=== PATIENT | male | born 1985 | race African-American/Black ===

== ENCOUNTER 2018-10-03 01:20 | Emergency (ER) | payer SELFPAY | END 2018-10-03 01:48 | disposition left against medical advice (07) | LOC: E/R 01:20 | DX: Z53.21 Procedure and treatment not carried out due to patient leaving prior to being seen by health care provider (principal) ==

== ENCOUNTER 2018-10-03 12:12 | Inpatient (IN) | payer MEDICAID ==
[2018-10-03] MEDS: DIPHENHYDRAMINE 50 MG INJ IM (12:29)
[2018-10-03] MEDS: LORAZEPAM 2 MG INJ IM ×2 (12:29→18:42)
[2018-10-03] MEDS: OLANZAPINE 10 MG VIAL IM (12:47)
[2018-10-03 13:49] LABS: ADD MAN DIFF? NO
[2018-10-03 13:58] LABS: BASOPHILS % 0.1 % (0.0-2.0); EOSINOPHILS # 0.1 10^3/ul (0.0-0.5); EOSINOPHILS % 0.7 % (0.0-7.0); HEMOGLOBIN 12.6 g/dl (14.0-18.0); LYMPHOCYTES # 1.3 10^3/ul (0.8-2.9); LYMPHOCYTES % 19.1 % (15.0-51.0); MEAN CORPUSCULAR HGB CONC 31.5 g/dl (32.0-37.0); MEAN CORPUSCULAR VOLUME 85.8 fl (82.0-101.0); MEAN PLATELET VOLUME 10.3 fl (7.4-10.4); MONOCYTE # 1.1 10^3/ul (0.3-0.9); MONOCYTES % 15.1 % (0.0-11.0); NEUTROPHIL # 4.5 10^3/ul (1.6-7.5); NEUTROPHILS % 64.6 % (39.0-77.0); PLATELET COUNT 201 10^3/UL (140-415); RED BLOOD COUNT 4.66 10^6/ul (4.70-6.10); RED CELL DISTRIBUTION WIDTH 12.4 % (11.5-14.5)
[2018-10-03 14:17] LABS: ACETAMINOPHEN < 10.0 ug/ml (10.0-30.0); ALANINE AMINOTRANSFERASE 29 IU/L (13-69); ALBUMIN 3.8 g/dl (3.3-4.9); ALBUMIN/GLOBULIN RATIO 1.05; ALKALINE PHOSPHATASE 73 IU/L (42-121); ANION GAP 7 (5-13); ASPARTATE AMINO TRANSFERASE 63 IU/L (15-46); BILIRUBIN,INDIRECT 0.3 mg/dl (0-1.1); BILIRUBIN,TOTAL 0.3 mg/dl (0.2-1.3); BLOOD UREA NITROGEN 13 mg/dl (7-20); CALCIUM 8.9 mg/dl (8.4-10.2); CARBON DIOXIDE 28 mmol/L (21-31); CHLORIDE 103 mmol/L (97-110); CREATININE 1.18 mg/dl (0.61-1.24); ETHANOL < 10.0 mg/dl (0-0); Estimated GFR > 60 mL/min (>60); GLUCOSE 83 mg/dl (70-220); POTASSIUM 3.5 mmol/L (3.5-5.1); SALICYLATE < 1.0 mg/dl (5.0-30.0); SODIUM 138 mmol/L (135-144); TOTAL PROTEIN 7.4 g/dl (6.1-8.1)
[2018-10-03] MEDS ORDERED: KETAMINE (50 MG/ML) 10 ML VIAL IM (17:50)
[2018-10-03] MEDS: KETAMINE (50 MG/ML) 10 ML VIAL IM (18:07)
[2018-10-03 21:17] LABS: AMPHETAMINE/METHAMPHETAMINE Negative (NEGATIVE); BARBITURATES Negative (NEGATIVE); BENZODIAZEPINES Negative (NEGATIVE); CANNABINOIDS Positive (NEGATIVE); COCAINE Negative (NEGATIVE); OPIATES Negative (NEGATIVE)
[2018-10-03 21:18] LABS: ADD UMIC YES; UR ASCORBIC ACID NEGATIVE (NEGATIVE); UR BILIRUBIN (Dip) NEGATIVE (NEGATIVE); UR BLOOD (Dip) 3+ mg/dL (NEGATIVE); UR CLARITY CLEAR (CLEAR); UR COLOR YELLOW (YELLOW); UR GLUCOSE (Dip) NEGATIVE (NEGATIVE); UR KETONES (Dip) 2+ mg/dL (NEGATIVE); UR LEUKOCYTE ESTERASE (Dip) TRACE Leu/ul (NEGATIVE); UR MUCUS FEW /HPF (NONE SEEN); UR NITRITE (Dip) NEGATIVE (NEGATIVE); UR RBC 136 /HPF (0-5); UR SPECIFIC GRAVITY (Dip) 1.015 (1.003-1.030); UR TOTAL PROTEIN (Dip) NEGATIVE (NEGATIVE); UR UROBILINOGEN (Dip) 1+ mg/dL (NEGATIVE); UR WBC 21 /HPF (0-5)
[2018-10-03] MEDS: HALOPERIDOL 5 MG INJ IM (21:54)
[2018-10-04] MEDS: OLANZAPINE 10 MG VIAL IM ×3 (07:02→16:06)
[2018-10-04] MEDS: LORAZEPAM 2 MG INJ IM (10:04)
[2018-10-04] MEDS: HALOPERIDOL 5 MG INJ IM ×2 (10:04→12:44)
[2018-10-04] MEDS: DIPHENHYDRAMINE 50 MG INJ IM (12:44)
[2018-10-05] MEDS: KETAMINE (50 MG/ML) 10 ML VIAL IM ×2 (00:40→19:03)
[2018-10-05] MEDS: MIDAZOLAM 1 MG/ML 2 ML INJ IM (02:00)
[2018-10-05] MEDS: OLANZAPINE 10 MG VIAL IM (08:38)
[2018-10-05] MEDS: HALOPERIDOL 5 MG INJ IM ×2 (09:38→14:02)
[2018-10-05] MEDS: LORAZEPAM 2 MG INJ IM ×2 (09:38→14:02)
[2018-10-05] MEDS: DIPHENHYDRAMINE 50 MG INJ IM (14:02)
[2018-10-05] MEDS ORDERED: MIDAZOLAM 1 MG/ML 5 ML INJ IM (19:00)
[2018-10-05] MEDS: MIDAZOLAM 5 MG/ML 1ML INJ IM (19:03)
[2018-10-05] MEDS: BENZTROPINE 1 MG TAB PO (21:00)
[2018-10-05] MEDS: DIVALPROEX (EC) 500 MG TAB PO (21:00)
[2018-10-05] MEDS: OLANZAPINE (ODT) 5 MG TAB ODT (21:00)
[2018-10-06] MEDS: OLANZAPINE 10 MG VIAL IM (02:42)
[2018-10-06] MEDS: LORAZEPAM 2 MG INJ IM (02:42)
[2018-10-06 03:45] LABS: ANION GAP 9 (5-13); BLOOD UREA NITROGEN 7 mg/dl (7-20); CALCIUM 9.2 mg/dl (8.4-10.2); CARBON DIOXIDE 29 mmol/L (21-31); CHLORIDE 104 mmol/L (97-110); CREATININE 1.02 mg/dl (0.61-1.24); Estimated GFR > 60 mL/min (>60); GLUCOSE 83 mg/dl (70-220); POTASSIUM 3.5 mmol/L (3.5-5.1); SODIUM 142 mmol/L (135-144)
[2018-10-06 03:51] LABS: CREATINE KINASE 3124 IU/L (23-200)
[2018-10-06] MEDS: SOD CHLORIDE 0.9% 1,000 ML IV ×4 (05:03→07:12)
[2018-10-06] MEDS: SUCCINYLCHOLINE CHLORIDE 100 MG/5 ML SYG IV ×2 (06:34→07:14)
[2018-10-06] MEDS ORDERED: DIPHENHYDRAMINE 50 MG INJ (06:39)
[2018-10-06] MEDS ORDERED: PROPOFOL 100 ML ×2 (06:44→08:30)
[2018-10-06] MEDS ORDERED: SUCCINYLCHOLINE CHLORIDE 100 MG/5 ML SYG IV (07:00)
[2018-10-06] MEDS ORDERED: ETOMIDATE 20 MG INJ (07:00)
[2018-10-06] MEDS ORDERED: PROPOFOL 200 MG INJ (07:00)
[2018-10-06] MEDS: LACTATED RINGER'S 1,000 ML IV (07:13)
[2018-10-06] MEDS: [UNRECOGNIZED DRUG - OTHER] ZFS (07:13)
[2018-10-06] MEDS: ETOMIDATE 20 MG INJ IV (07:13)
[2018-10-06] MEDS: PROPOFOL 100 ML IV ×6 (07:15→23:16)
[2018-10-06] MEDS: VECURONIUM 100 MG in D5W 100 ML IV (07:17)
[2018-10-06 08:07] LABS: AADO2 Arterial 153.9 mmHg (7.0-24.0); Allen Test ACCEPTAB; Arterial Base Excess -2.5 mmol/L (-3.0-3); Arterial Blood Gas Oxygen Sat 99.7 mmHG (95.0-98.0); Arterial COHb 0.7 % (0.0-3.0); Arterial Fraction of Oxyhgb 98.6 % (93.0-99.0); Arterial HCO3 23.7 mmol/L (22.0-26.0); Arterial MetHb 0.4 % (0.0-1.5); Arterial pCO2 46.2 mmhg (35-45); MODE VENT - AC; Site Left Radial
[2018-10-06] MEDS: SODIUM CHLORIDE 0.9% 1L BAG IV* (08:21)
[2018-10-06 08:48] LABS: ADD MAN DIFF? NO
[2018-10-06 08:54] LABS: BASOPHILS % 0.1 % (0.0-2.0); EOSINOPHILS # 0.1 10^3/ul (0.0-0.5); EOSINOPHILS % 1.6 % (0.0-7.0); HEMATOCRIT 43.2 % (42.0-52.0); HEMOGLOBIN 13.3 g/dl (14.0-18.0); LYMPHOCYTES # 1.3 10^3/ul (0.8-2.9); LYMPHOCYTES % 18.3 % (15.0-51.0); MEAN CORPUSCULAR HEMOGLOBIN 27.1 pg (29.0-33.0); MEAN CORPUSCULAR HGB CONC 30.8 g/dl (32.0-37.0); MEAN CORPUSCULAR VOLUME 88.2 fl (82.0-101.0); MEAN PLATELET VOLUME 10.1 fl (7.4-10.4); MONOCYTE # 0.7 10^3/ul (0.3-0.9); MONOCYTES % 9.8 % (0.0-11.0); NEUTROPHIL # 4.9 10^3/ul (1.6-7.5); NEUTROPHILS % 69.9 % (39.0-77.0); PLATELET COUNT 221 10^3/UL (140-415); RED CELL DISTRIBUTION WIDTH 12.7 % (11.5-14.5)
[2018-10-06 08:54] LABS: WHITE BLOOD COUNT 7.1 10^3/ul (4.8-10.8)
[2018-10-06 09:14] LABS: LACTIC ACID 1.1 mmol/L (0.5-2.0)
[2018-10-06 09:26] LABS: INR 1.13; PROTIME 14.6 Sec (11.9-14.9); PT RATIO 1.1
[2018-10-06 09:27] LABS: PARTIAL THROMBOPLASTIN TIME 37.3 Sec (23.0-35.0)
[2018-10-06 10:33] LABS: ALANINE AMINOTRANSFERASE 42 IU/L (13-69); ALBUMIN 3.5 g/dl (3.3-4.9); ALBUMIN/GLOBULIN RATIO 1.02; ALKALINE PHOSPHATASE 77 IU/L (42-121); AMYLASE 44 U/L (11-123); ANION GAP 40 (5-13); ASPARTATE AMINO TRANSFERASE 72 IU/L (15-46); BILIRUBIN,INDIRECT 0.1 mg/dl (0-1.1); BILIRUBIN,TOTAL 0.1 mg/dl (0.2-1.3); BLOOD UREA NITROGEN 6 mg/dl (7-20); CALCIUM 8.3 mg/dl (8.4-10.2); CARBON DIOXIDE 26 mmol/L (21-31); CHLORIDE 102 mmol/L (97-110); CREATININE 0.92 mg/dl (0.61-1.24); Estimated GFR > 60 mL/min (>60); GLUCOSE 187 mg/dl (70-220); LIPASE 44 U/L (23-300); POTASSIUM 3.6 mmol/L (3.5-5.1); TOTAL PROTEIN 6.9 g/dl (6.1-8.1)
[2018-10-06 10:39] LABS: SODIUM 168 mmol/L (135-144)
[2018-10-06 10:45] LABS: TROPONIN-I < 0.012 ng/ml (0.000-0.120)
[2018-10-06] MEDS: DIVALPROEX (EC) 500 MG TAB PO ×2 (11:00→20:32)
[2018-10-06] MEDS ORDERED: CHLORPROMAZINE 25 MG INJ IV (12:00)
[2018-10-06] MEDS ORDERED: SOD CHLORIDE 0.9% 1,000 ML IV (13:00)
[2018-10-06] MEDS ORDERED: CHLORPROMAZINE 25 MG INJ IM (13:03)
[2018-10-06] MEDS: DIPHENHYDRAMINE 50 MG INJ IV ×2 (13:09→20:24)
[2018-10-06] MEDS: SOD CHLORIDE 0.45% 1,000 ML IV (13:51)
[2018-10-06] MEDS: FENTAnyl (DRIP) 1000 mcg/100mL 100 ML IV ×2 (14:34→22:28)
[2018-10-06] MEDS: MIDAZOLAM (DRIP) 50 mg/50 mL 50 ML IV ×3 (14:35→22:27)
[2018-10-06] MEDS: CHLORPROMAZINE 25 MG INJ IM ×2 (14:45→20:30)
[2018-10-06 14:52] LABS: LACTIC ACID 1.4 mmol/L (0.5-2.0)
[2018-10-06] MEDS: LORAZEPAM 2 MG INJ IV (15:00)
[2018-10-06] MEDS ORDERED: VECURONIUM 100 MG in DEXTROSE 5% 100 ML IV (17:00)
[2018-10-06] MEDS: ACETAMINOPHEN 1000MG/100ML IV 100 ML IVPB (21:34)
[2018-10-06 23:13] LABS: ANION GAP 15 (5-13); BLOOD UREA NITROGEN 7 mg/dl (7-20); CALCIUM 8.3 mg/dl (8.4-10.2); CARBON DIOXIDE 24 mmol/L (21-31); CHLORIDE 103 mmol/L (97-110); CREATININE 1.21 mg/dl (0.61-1.24); GLUCOSE 80 mg/dl (70-220); PHOSPHORUS 2.5 mg/dl (2.5-4.9); POTASSIUM 3.5 mmol/L (3.5-5.1); SODIUM 142 mmol/L (135-144)
[2018-10-07] MEDS ORDERED: SOD CHLORIDE 0.9% 1,000 ML IV
[2018-10-07] MEDS: SOD CHLORIDE 0.9% 1,000 ML IV ×4 (00:23→20:38)
[2018-10-07] MEDS: PROPOFOL 100 ML IV ×3 (02:03→08:02)
[2018-10-07] MEDS: MIDAZOLAM (DRIP) 50 mg/50 mL 50 ML IV ×2 (02:41→07:05)
[2018-10-07 04:56] LABS: ADD MAN DIFF? NO
[2018-10-07 05:24] LABS: WHITE BLOOD COUNT 11.9 10^3/ul (4.8-10.8)
[2018-10-07 05:24] LABS: BASOPHILS % 0.2 % (0.0-2.0); EOSINOPHILS % 0.3 % (0.0-7.0); HEMATOCRIT 38.6 % (42.0-52.0); HEMOGLOBIN 11.9 g/dl (14.0-18.0); LYMPHOCYTES # 0.6 10^3/ul (0.8-2.9); LYMPHOCYTES % 5.4 % (15.0-51.0); MEAN CORPUSCULAR HEMOGLOBIN 27.9 pg (29.0-33.0); MEAN CORPUSCULAR HGB CONC 30.8 g/dl (32.0-37.0); MEAN CORPUSCULAR VOLUME 90.4 fl (82.0-101.0); MEAN PLATELET VOLUME 10.3 fl (7.4-10.4); MONOCYTE # 0.7 10^3/ul (0.3-0.9); MONOCYTES % 5.6 % (0.0-11.0); NEUTROPHIL # 10.4 10^3/ul (1.6-7.5); NEUTROPHILS % 87.8 % (39.0-77.0); PLATELET COUNT 174 10^3/UL (140-415); RED BLOOD COUNT 4.27 10^6/ul (4.70-6.10); RED CELL DISTRIBUTION WIDTH 12.8 % (11.5-14.5)
[2018-10-07 05:48] LABS: ANION GAP 14 (5-13); BLOOD UREA NITROGEN 8 mg/dl (7-20); CALCIUM 8.1 mg/dl (8.4-10.2); CARBON DIOXIDE 25 mmol/L (21-31); CHLORIDE 103 mmol/L (97-110); Estimated GFR > 60 mL/min (>60); GLUCOSE 83 mg/dl (70-220); MAGNESIUM 1.4 mg/dl (1.7-2.5); PHOSPHORUS 4.3 mg/dl (2.5-4.9); POTASSIUM 4.2 mmol/L (3.5-5.1); SODIUM 142 mmol/L (135-144)
[2018-10-07] MEDS: FENTAnyl (DRIP) 1000 mcg/100mL 100 ML IV ×2 (07:08→16:54)
[2018-10-07] MEDS: MAGNESIUM SULFATE 4 GM/100 ML 100 ML IVPB (09:00)
[2018-10-07] MEDS: DIVALPROEX (EC) 500 MG TAB PO ×2 (09:00→20:27)
[2018-10-07 09:09] LABS: ADD UMIC YES; UR AMORPHOUS CRYSTAL MANY /HPF (NONE SEEN); UR ASCORBIC ACID 40 mg/dL (NEGATIVE); UR BACTERIA FEW /HPF (NONE SEEN); UR BILIRUBIN (Dip) NEGATIVE (NEGATIVE); UR BLOOD (Dip) NEGATIVE (NEGATIVE); UR CLARITY TURBID (CLEAR); UR COLOR YELLOW (YELLOW); UR GLUCOSE (Dip) NEGATIVE (NEGATIVE); UR KETONES (Dip) 2+ mg/dL (NEGATIVE); UR LEUKOCYTE ESTERASE (Dip) NEGATIVE Leu/ul (NEGATIVE); UR MUCUS FEW /HPF (NONE SEEN); UR NITRITE (Dip) NEGATIVE (NEGATIVE); UR RBC 0 /HPF (0-5); UR SPECIFIC GRAVITY (Dip) 1.032 (1.003-1.030); UR SQUAMOUS EPITHELIAL CELL FEW /HPF (FEW); UR TOTAL PROTEIN (Dip) 1+ mg/dl (NEGATIVE); UR UROBILINOGEN (Dip) 1+ mg/dL (NEGATIVE); UR WBC 4 /HPF (0-5)
[2018-10-07 09:27] LABS: CREATINE KINASE 2238 IU/L (23-200)
[2018-10-07 09:28] LABS: CK INDEX 0.1; TROPONIN-I 0.016 ng/ml (0.000-0.120)
[2018-10-07 09:30] LABS: AADO2 Arterial 101.9 mmHg (7.0-24.0); Allen Test ACCEPTAB; Arterial Base Excess -1.6 mmol/L (-3.0-3); Arterial HCO3 24.7 mmol/L (22.0-26.0); Arterial pCO2 47.9 mmhg (35-45); MODE VENT - AC; Site Left Radial
[2018-10-07] MEDS: DIPHENHYDRAMINE 50 MG INJ IV ×2 (09:53→20:38)
[2018-10-07] MEDS: CHLORPROMAZINE 25 MG INJ IM ×2 (09:54→21:33)
[2018-10-07] MEDS: LIDOCAINE 1% (MPF) 5 ML VIAL SC (13:00)
[2018-10-07] MEDS: DEXMEDETOMIDINE HCL 200 MCG in SOD CHLORIDE 0.9% 48 ML IV ×2 (17:11→21:42)
[2018-10-07] MEDS: SODIUM BICARBONATE (IV ADD) 50 MEQ in DEXTROSE 5% 1,000 ML IV (17:22)
[2018-10-07 17:55] LABS: SODIUM,URINE RANDOM 75 mmol/L (30-90)
[2018-10-07 17:55] LABS: CREATININE,URINE RANDOM 436.18 mg/dl (20-370)
[2018-10-07 18:02] LABS: CREATININE,URINE RANDOM 436.18 mg/dl (20-370); PROTEIN/CREAT RATIO 0.06 RATIO
[2018-10-07] MEDS: LORAZEPAM 2 MG INJ IV (18:42)
[2018-10-07] MEDS: ACETAMINOPHEN 1000MG/100ML IV 100 ML IVPB (22:11)
[2018-10-07] MEDS: PIPER-TAZO 3.375 GM IV (PMX) 100 ML IVPB (23:17)
[2018-10-08] MEDS: DEXMEDETOMIDINE HCL 200 MCG in SOD CHLORIDE 0.9% 48 ML IV ×9 (00:10→23:30)
[2018-10-08] MEDS: SOD CHLORIDE 0.9% 1,000 ML IV ×4 (03:38→20:23)
[2018-10-08] MEDS: FENTAnyl (DRIP) 1000 mcg/100mL 100 ML IV (04:23)
[2018-10-08] MEDS: PIPER-TAZO 3.375 GM IV (PMX) 100 ML IVPB ×4 (05:28→23:27)
[2018-10-08 05:33] LABS: ABNORMAL IP MESSAGE 1; HEMOGLOBIN 9.8 g/dl (14.0-18.0); MEAN CORPUSCULAR HEMOGLOBIN 27.9 pg (29.0-33.0); MEAN CORPUSCULAR HGB CONC 30.6 g/dl (32.0-37.0); MEAN CORPUSCULAR VOLUME 91.2 fl (82.0-101.0); MEAN PLATELET VOLUME 10.5 fl (7.4-10.4); PLATELET COUNT 118 10^3/UL (140-415); POSITIVE DIFF @See below; RED BLOOD COUNT 3.51 10^6/ul (4.70-6.10); RED CELL DISTRIBUTION WIDTH 13.1 % (11.5-14.5)
[2018-10-08 05:33] LABS: WHITE BLOOD COUNT 7.6 10^3/ul (4.8-10.8)
[2018-10-08 05:35] LABS: ADD MAN DIFF? YES
[2018-10-08 06:02] LABS: ANION GAP 7 (5-13); BLOOD UREA NITROGEN 7 mg/dl (7-20); CARBON DIOXIDE 27 mmol/L (21-31); CHLORIDE 106 mmol/L (97-110); CREATINE KINASE 1162 IU/L (23-200); CREATININE 0.89 mg/dl (0.61-1.24); Estimated GFR > 60 mL/min (>60); GLUCOSE 102 mg/dl (70-220); MAGNESIUM 1.5 mg/dl (1.7-2.5); PHOSPHORUS 1.9 mg/dl (2.5-4.9); POTASSIUM 3.4 mmol/L (3.5-5.1); SODIUM 140 mmol/L (135-144)
[2018-10-08] MEDS: SODIUM BICARBONATE (IV ADD) 50 MEQ in DEXTROSE 5% 1,000 ML IV (06:05)
[2018-10-08 06:10] LABS: CK-MB 0.53 ng/ml (0.0-2.4); TROPONIN-I < 0.012 ng/ml (0.000-0.120)
[2018-10-08] MEDS: MAGNESIUM SULFATE 2 GM/50 ML 50 ML IVPB (06:46)
[2018-10-08] MEDS: POTASSIUM CHLORIDE 100 ML IVPB ×2 (07:54→09:47)
[2018-10-08] MEDS: DIVALPROEX (EC) 500 MG TAB PO ×2 (09:00→20:23)
[2018-10-08] MEDS: DIPHENHYDRAMINE 50 MG INJ IV ×2 (09:03→20:23)
[2018-10-08] MEDS: MIDAZOLAM (DRIP) 50 mg/50 mL 50 ML IV ×2 (09:20→17:22)
[2018-10-08] MEDS: CHLORPROMAZINE 25 MG INJ IM ×2 (09:49→20:24)
[2018-10-08] MEDS: PANTOPRAZOLE 40 MG INJ IV (09:49)
[2018-10-08] MEDS: POTASSIUM PHOSPHATE 20 MEQ in SOD CHLORIDE 0.9% 250 ML IVPB (10:33)
[2018-10-08] MEDS: PROPOFOL 100 ML IV ×2 (12:00→23:27)
[2018-10-08 18:47] LABS: ALANINE AMINOTRANSFERASE 23 IU/L (13-69); ALBUMIN 2.5 g/dl (3.3-4.9); ALBUMIN/GLOBULIN RATIO 0.75; ALKALINE PHOSPHATASE 63 IU/L (42-121); ANION GAP 9 (5-13); ASPARTATE AMINO TRANSFERASE 35 IU/L (15-46); BLOOD UREA NITROGEN 9 mg/dl (7-20); CALCIUM 7.7 mg/dl (8.4-10.2); CARBON DIOXIDE 28 mmol/L (21-31); CHLORIDE 103 mmol/L (97-110); CREATININE 0.83 mg/dl (0.61-1.24); Estimated GFR > 60 mL/min (>60); GLUCOSE 98 mg/dl (70-220); POTASSIUM 4.3 mmol/L (3.5-5.1); SODIUM 140 mmol/L (135-144); TOTAL PROTEIN 5.8 g/dl (6.1-8.1)
[2018-10-08 19:19] LABS: PHOSPHORUS 2.4 mg/dl (2.5-4.9)
[2018-10-08 19:19] LABS: MAGNESIUM 1.8 mg/dl (1.7-2.5)
[2018-10-08] MEDS: LORAZEPAM 2 MG INJ IV (23:12)
[2018-10-09] MEDS: DEXMEDETOMIDINE HCL 200 MCG in SOD CHLORIDE 0.9% 48 ML IV ×6 (01:59→11:32)
[2018-10-09] MEDS: FENTAnyl (DRIP) 1000 mcg/100mL 100 ML IV (02:15)
[2018-10-09] MEDS: SOD CHLORIDE 0.9% 1,000 ML IV ×3 (03:46→22:39)
[2018-10-09 05:18] LABS: HEMATOCRIT 33.2 % (42.0-52.0); HEMOGLOBIN 10.1 g/dl (14.0-18.0); MEAN CORPUSCULAR HEMOGLOBIN 27.5 pg (29.0-33.0); MEAN CORPUSCULAR HGB CONC 30.4 g/dl (32.0-37.0); MEAN CORPUSCULAR VOLUME 90.5 fl (82.0-101.0); MEAN PLATELET VOLUME 10.8 fl (7.4-10.4); PLATELET COUNT 137 10^3/UL (140-415); POSITIVE DIFF @See below; RED BLOOD COUNT 3.67 10^6/ul (4.70-6.10); RED CELL DISTRIBUTION WIDTH 12.7 % (11.5-14.5)
[2018-10-09 05:18] LABS: WHITE BLOOD COUNT 9.3 10^3/ul (4.8-10.8)
[2018-10-09 05:21] LABS: ADD MAN DIFF? YES
[2018-10-09] MEDS: PIPER-TAZO 3.375 GM IV (PMX) 100 ML IVPB ×3 (05:23→18:05)
[2018-10-09] MEDS: PANTOPRAZOLE 40 MG INJ IV (05:23)
[2018-10-09 05:29] LABS: PHOSPHORUS 2.4 mg/dl (2.5-4.9)
[2018-10-09 05:29] LABS: CREATINE KINASE 932 IU/L (23-200); MAGNESIUM 1.5 mg/dl (1.7-2.5)
[2018-10-09 05:37] LABS: ALANINE AMINOTRANSFERASE 27 IU/L (13-69); ALBUMIN 2.3 g/dl (3.3-4.9); ALBUMIN/GLOBULIN RATIO 0.71; ALKALINE PHOSPHATASE 58 IU/L (42-121); ANION GAP 11 (5-13); ASPARTATE AMINO TRANSFERASE 32 IU/L (15-46); BLOOD UREA NITROGEN 8 mg/dl (7-20); CALCIUM 7.5 mg/dl (8.4-10.2); CARBON DIOXIDE 27 mmol/L (21-31); CHLORIDE 103 mmol/L (97-110); CREATININE 0.79 mg/dl (0.61-1.24); Estimated GFR > 60 mL/min (>60); GLUCOSE 83 mg/dl (70-220); POTASSIUM 3.8 mmol/L (3.5-5.1); SODIUM 141 mmol/L (135-144); TOTAL PROTEIN 5.5 g/dl (6.1-8.1)
[2018-10-09 05:40] LABS: CK INDEX 0.1; CK-MB 0.54 ng/ml (0.0-2.4); TROPONIN-I < 0.012 ng/ml (0.000-0.120)
[2018-10-09 07:32] LABS: AADO2 Arterial 78.6 mmHg (7.0-24.0); Allen Test ACCEPTAB; Arterial Base Excess 2.2 mmol/L (-3.0-3); Arterial Blood Gas Oxygen Sat 93.5 mmHG (95.0-98.0); Arterial COHb 0.4 % (0.0-3.0); Arterial Fraction of Oxyhgb 92.9 % (93.0-99.0); Arterial HCO3 29.1 mmol/L (22.0-26.0); Arterial MetHb 0.2 % (0.0-1.5); Arterial pCO2 55.7 mmhg (35-45); MODE VENT - AC; Site Right Radial
[2018-10-09] MEDS: MAGNESIUM SULFATE 2 GM/50 ML 50 ML IVPB (08:51)
[2018-10-09] MEDS: DIVALPROEX SPRINKLE 125 MG CAP PO ×2 (09:09→20:28)
[2018-10-09] MEDS: DIPHENHYDRAMINE 50 MG INJ IV ×2 (09:09→20:27)
[2018-10-09] MEDS: CHLORPROMAZINE 25 MG INJ IM ×2 (09:50→20:28)
[2018-10-09 10:22] LABS: ANISOCYTOSIS 1+ (0-0); BAND NEUTROPHILS #M 2.5 10^3/ul (0.0-0.6); BAND NEUTROPHILS % (M) 27 % (0-4); EOSINOPHILS % (M) 2 % (0-7); HYPOCHROMASIA 1+ (0-0); LYMPHOCYTES #M 0.7 10^3/ul (0.8-2.9); LYMPHOCYTES % (M) 8 % (15-51); MONOCYTE #M 0.3 10^3/ul (0.3-0.9); MONOCYTES % (M) 4 % (0-11); PLATELET ESTIMATE NORMAL; REACTIVE LYMPHOCYTES #M 0.1 10^3/ul (0.0-0.0); REACTIVE LYMPHOCYTES% (M) 2 % (0-0); SEG NEUT #M 5.5 10^3/ul (1.6-7.5); SEGMENTED NEUTROPHILS (M) % 57 % (39-77); SMUDGE%M 4 % (0-0)
[2018-10-09] MEDS: POTASSIUM PHOSPHATE 20 MEQ in SOD CHLORIDE 0.9% 250 ML IVPB (10:24)
[2018-10-09] MEDS ORDERED: MAGNESIUM SULFATE 2 GM/50 ML 50 ML IVPB (10:30)
[2018-10-09 10:49] LABS: AADO2 Arterial 77.7 mmHg (7.0-24.0); Allen Test ACCEPTAB; Arterial Base Excess 2.9 mmol/L (-3.0-3); Arterial Blood Gas Oxygen Sat 93.6 mmHG (95.0-98.0); Arterial COHb 0.1 % (0.0-3.0); Arterial Fraction of Oxyhgb 93.3 % (93.0-99.0); Arterial HCO3 29.6 mmol/L (22.0-26.0); Arterial MetHb 0.2 % (0.0-1.5); Blood Gas PS 10; MODE VENT - CPAP; Site Right Radial
[2018-10-09] MEDS: SOD PHOS MONO/DIBAS 250 MG TAB NGT (11:17)
[2018-10-09] MEDS: PROPOFOL 100 ML IV ×2 (11:22→22:09)
[2018-10-09] MEDS: FUROSEMIDE 40 MG INJ IV (11:29)
[2018-10-09 13:32] LABS: CREATINE KINASE 1021 IU/L (23-200)
[2018-10-09 13:45] LABS: CK-MB 0.43 ng/ml (0.0-2.4); TROPONIN-I < 0.012 ng/ml (0.000-0.120)
[2018-10-09] MEDS ORDERED: DIPHENHYDRAMINE 50 MG INJ IV (16:00)
[2018-10-09] MEDS: LORAZEPAM 2 MG INJ IV ×3 (16:04→22:33)
[2018-10-09] MEDS ORDERED: OLANZAPINE 10 MG VIAL IM (17:00)
[2018-10-09] MEDS: BENZTROPINE 1 MG TAB PO ×2 (17:30→20:28)
[2018-10-09] MEDS ORDERED: BENZTROPINE 1 MG TAB PO (21:00)
[2018-10-09] MEDS: HALOPERIDOL 5 MG INJ IV (21:09)
[2018-10-10] MEDS: LORAZEPAM 2 MG INJ IV ×3 (00:11→20:43)
[2018-10-10] MEDS: PIPER-TAZO 3.375 GM IV (PMX) 100 ML IVPB ×5 (00:11→23:40)
[2018-10-10 05:24] LABS: ADD MAN DIFF? NO
[2018-10-10 05:30] LABS: BASOPHILS % 0.3 % (0.0-2.0); EOSINOPHILS # 0.1 10^3/ul (0.0-0.5); EOSINOPHILS % 1.5 % (0.0-7.0); HEMATOCRIT 35.5 % (42.0-52.0); LYMPHOCYTES # 1.2 10^3/ul (0.8-2.9); LYMPHOCYTES % 13.2 % (15.0-51.0); MEAN CORPUSCULAR HEMOGLOBIN 27.3 pg (29.0-33.0); MEAN CORPUSCULAR VOLUME 88.1 fl (82.0-101.0); MEAN PLATELET VOLUME 10.5 fl (7.4-10.4); MONOCYTES % 11.8 % (0.0-11.0); NEUTROPHIL # 6.4 10^3/ul (1.6-7.5); NEUTROPHILS % 72.5 % (39.0-77.0); PLATELET COUNT 189 10^3/UL (140-415); RED BLOOD COUNT 4.03 10^6/ul (4.70-6.10); RED CELL DISTRIBUTION WIDTH 12.7 % (11.5-14.5)
[2018-10-10 05:30] LABS: WHITE BLOOD COUNT 8.8 10^3/ul (4.8-10.8)
[2018-10-10 05:54] LABS: MAGNESIUM 1.4 mg/dl (1.7-2.5)
[2018-10-10 05:54] LABS: PHOSPHORUS 2.3 mg/dl (2.5-4.9)
[2018-10-10 05:57] LABS: CREATINE KINASE 1432 IU/L (23-200)
[2018-10-10 06:00] LABS: ANION GAP 18 (5-13); BLOOD UREA NITROGEN 7 mg/dl (7-20); CALCIUM 8.4 mg/dl (8.4-10.2); CARBON DIOXIDE 26 mmol/L (21-31); CHLORIDE 98 mmol/L (97-110); CREATININE 0.98 mg/dl (0.61-1.24); Estimated GFR > 60 mL/min (>60); GLUCOSE 70 mg/dl (70-220); POTASSIUM 3.5 mmol/L (3.5-5.1); SODIUM 142 mmol/L (135-144)
[2018-10-10] MEDS: PANTOPRAZOLE 40 MG INJ IV (06:00)
[2018-10-10] MEDS: BENZTROPINE 1 MG TAB PO ×3 (08:50→20:43)
[2018-10-10] MEDS: DIVALPROEX SPRINKLE 125 MG CAP PO ×3 (08:52→20:43)
[2018-10-10] MEDS: CHLORPROMAZINE 25 MG INJ IM ×2 (08:53→20:44)
[2018-10-10] MEDS: DIPHENHYDRAMINE 50 MG INJ IV ×3 (08:53→20:43)
[2018-10-10] MEDS: MAGNESIUM SULFATE 3 GM in DEXTROSE 5% 100 ML IVPB (09:33)
[2018-10-10] MEDS: SOD CHLORIDE 0.9% 1,000 ML IV ×2 (10:19→20:45)
[2018-10-10] MEDS: PROPOFOL 100 ML IV ×2 (12:00→23:40)
[2018-10-10] MEDS: POTASSIUM PHOSPHATE 40 MEQ in SOD CHLORIDE 0.9% 250 ML IVPB (12:42)
[2018-10-10] MEDS: METOPROLOL 5 MG INJ IV (16:14)
[2018-10-11] MEDS: LORAZEPAM 2 MG INJ IV ×3 (00:28→19:44)
[2018-10-11] MEDS: METOPROLOL 5 MG INJ IV ×2 (02:07→21:06)
[2018-10-11 03:12] LABS: ANION GAP 8 (5-13); BLOOD UREA NITROGEN 5 mg/dl (7-20); CALCIUM 8.2 mg/dl (8.4-10.2); CARBON DIOXIDE 27 mmol/L (21-31); CHLORIDE 105 mmol/L (97-110); CREATININE 1.01 mg/dl (0.61-1.24); Estimated GFR > 60 mL/min (>60); GLUCOSE 93 mg/dl (70-220); POTASSIUM 3.4 mmol/L (3.5-5.1); SODIUM 140 mmol/L (135-144)
[2018-10-11 03:13] LABS: CREATINE KINASE 1281 IU/L (23-200)
[2018-10-11 03:15] LABS: PHOSPHORUS 2.8 mg/dl (2.5-4.9)
[2018-10-11 03:15] LABS: MAGNESIUM 1.9 mg/dl (1.7-2.5)
[2018-10-11] MEDS: POTASSIUM CHLORIDE 100 ML IVPB ×2 (03:56→06:01)
[2018-10-11] MEDS: PANTOPRAZOLE 40 MG INJ IV (06:01)
[2018-10-11] MEDS: PIPER-TAZO 3.375 GM IV (PMX) 100 ML IVPB ×4 (06:01→23:26)
[2018-10-11] MEDS ORDERED: POTASSIUM CHLORIDE 100 ML IVPB (09:00)
[2018-10-11] MEDS: DIVALPROEX SPRINKLE 125 MG CAP PO ×2 (09:00→20:37)
[2018-10-11] MEDS: BENZTROPINE 1 MG TAB PO ×3 (09:00→20:37)
[2018-10-11] MEDS: SOD CHLORIDE 0.9% 1,000 ML IV ×3 (09:03→18:23)
[2018-10-11] MEDS: DIPHENHYDRAMINE 50 MG INJ IV (09:05)
[2018-10-11] MEDS: CHLORPROMAZINE 25 MG INJ IM ×3 (09:08→19:15)
[2018-10-11] MEDS: DIPHENHYDRAMINE 50 MG INJ IM ×2 (12:26→19:45)
[2018-10-11] MEDS: CHLORPROMAZINE 25 MG TAB PO ×2 (13:00→20:37)
[2018-10-12] MEDS: SOD CHLORIDE 0.9% 1,000 ML IV ×3 (01:43→23:35)
[2018-10-12] MEDS: LORAZEPAM 2 MG INJ IV ×6 (01:44→23:35)
[2018-10-12] MEDS: CHLORPROMAZINE 25 MG INJ IM (03:07)
[2018-10-12] MEDS: DIPHENHYDRAMINE 50 MG INJ IM (04:25)
[2018-10-12] MEDS: PANTOPRAZOLE 40 MG INJ IV (05:11)
[2018-10-12] MEDS: PIPER-TAZO 3.375 GM IV (PMX) 100 ML IVPB ×4 (05:12→23:35)
[2018-10-12] MEDS: BENZTROPINE 1 MG TAB PO ×3 (09:00→20:42)
[2018-10-12] MEDS: CHLORPROMAZINE 25 MG TAB PO ×3 (09:00→20:42)
[2018-10-12] MEDS: DIVALPROEX SPRINKLE 125 MG CAP PO ×2 (09:00→20:42)
[2018-10-12] MEDS: DIPHENHYDRAMINE 50 MG INJ IV ×2 (10:08→16:21)
[2018-10-12] MEDS: POTASSIUM CHLORIDE 100 ML IVPB ×2 (16:14→18:44)
[2018-10-13] MEDS: LORAZEPAM 2 MG INJ IV ×5 (03:56→19:43)
[2018-10-13] MEDS: PIPER-TAZO 3.375 GM IV (PMX) 100 ML IVPB ×3 (05:20→18:10)
[2018-10-13] MEDS: PANTOPRAZOLE 40 MG INJ IV (05:20)
[2018-10-13 06:06] LABS: ADD MAN DIFF? NO
[2018-10-13 06:39] LABS: WHITE BLOOD COUNT 9.9 10^3/ul (4.8-10.8)
[2018-10-13 06:39] LABS: BASOPHILS % 0.2 % (0.0-2.0); EOSINOPHILS # 0.3 10^3/ul (0.0-0.5); EOSINOPHILS % 2.9 % (0.0-7.0); HEMATOCRIT 34.9 % (42.0-52.0); HEMOGLOBIN 11.1 g/dl (14.0-18.0); LYMPHOCYTES # 1.4 10^3/ul (0.8-2.9); LYMPHOCYTES % 14.1 % (15.0-51.0); MEAN CORPUSCULAR HEMOGLOBIN 27.2 pg (29.0-33.0); MEAN CORPUSCULAR HGB CONC 31.8 g/dl (32.0-37.0); MEAN CORPUSCULAR VOLUME 85.5 fl (82.0-101.0); MEAN PLATELET VOLUME 10.8 fl (7.4-10.4); MONOCYTE # 1.5 10^3/ul (0.3-0.9); MONOCYTES % 15.1 % (0.0-11.0); NEUTROPHIL # 6.6 10^3/ul (1.6-7.5); NEUTROPHILS % 66.5 % (39.0-77.0); PLATELET COUNT 218 10^3/UL (140-415); RED BLOOD COUNT 4.08 10^6/ul (4.70-6.10); RED CELL DISTRIBUTION WIDTH 13.2 % (11.5-14.5)
[2018-10-13 06:45] LABS: CREATINE KINASE 1299 IU/L (23-200)
[2018-10-13 06:58] LABS: ALBUMIN 2.7 g/dl (3.3-4.9); ANION GAP 5 (5-13); BLOOD UREA NITROGEN 7 mg/dl (7-20); CALCIUM 8.4 mg/dl (8.4-10.2); CARBON DIOXIDE 28 mmol/L (21-31); CHLORIDE 104 mmol/L (97-110); CREATININE 0.91 mg/dl (0.61-1.24); GLUCOSE 98 mg/dl (70-220); MAGNESIUM 1.8 mg/dl (1.7-2.5); PHOSPHORUS 3.1 mg/dl (2.5-4.9); POTASSIUM 4.6 mmol/L (3.5-5.1); SODIUM 137 mmol/L (135-144)
[2018-10-13] MEDS: BENZTROPINE 1 MG TAB PO ×3 (08:27→20:55)
[2018-10-13] MEDS: CHLORPROMAZINE 25 MG TAB PO ×4 (08:27→20:55)
[2018-10-13] MEDS: DIVALPROEX SPRINKLE 125 MG CAP PO ×2 (08:27→20:55)
[2018-10-13] MEDS: DIPHENHYDRAMINE 50 MG INJ IV ×2 (09:14→20:55)
[2018-10-13] MEDS: SOD CHLORIDE 0.9% 1,000 ML IV ×2 (11:42→21:16)
[2018-10-13] MEDS: CHLORPROMAZINE 25 MG INJ IM (17:38)
[2018-10-14] MEDS: SOD CHLORIDE 0.9% 1,000 ML IV ×2 (04:31→14:34)
[2018-10-14] MEDS: PANTOPRAZOLE 40 MG INJ IV (05:19)
[2018-10-14] MEDS: LORAZEPAM 2 MG INJ IV ×2 (05:19→23:04)
[2018-10-14 06:07] LABS: ADD MAN DIFF? NO
[2018-10-14 06:08] LABS: WHITE BLOOD COUNT 9.4 10^3/ul (4.8-10.8)
[2018-10-14 06:08] LABS: BASOPHILS % 0.2 % (0.0-2.0); EOSINOPHILS # 0.3 10^3/ul (0.0-0.5); EOSINOPHILS % 3.3 % (0.0-7.0); HEMATOCRIT 35.3 % (42.0-52.0); HEMOGLOBIN 11.1 g/dl (14.0-18.0); LYMPHOCYTES # 1.4 10^3/ul (0.8-2.9); LYMPHOCYTES % 15.1 % (15.0-51.0); MEAN CORPUSCULAR HEMOGLOBIN 27.4 pg (29.0-33.0); MEAN CORPUSCULAR HGB CONC 31.4 g/dl (32.0-37.0); MEAN CORPUSCULAR VOLUME 87.2 fl (82.0-101.0); MEAN PLATELET VOLUME 9.8 fl (7.4-10.4); MONOCYTE # 0.9 10^3/ul (0.3-0.9); MONOCYTES % 9.6 % (0.0-11.0); NEUTROPHIL # 6.7 10^3/ul (1.6-7.5); PLATELET COUNT 201 10^3/UL (140-415); RED BLOOD COUNT 4.05 10^6/ul (4.70-6.10)
[2018-10-14 06:42] LABS: CREATINE KINASE 1377 IU/L (23-200)
[2018-10-14] MEDS: BENZTROPINE 1 MG TAB PO ×4 (08:23→21:02)
[2018-10-14] MEDS: DIVALPROEX SPRINKLE 125 MG CAP PO ×3 (08:24→21:02)
[2018-10-14] MEDS: CHLORPROMAZINE 25 MG TAB PO ×4 (08:24→21:02)
[2018-10-14] MEDS: BALSAM PERU/CASTOR OIL 60 GM TUBE TOP (08:24)
[2018-10-14] MEDS: CHLORPROMAZINE 25 MG INJ IM (11:20)
[2018-10-14] MEDS: VITAMIN A & D 5 GM OINT PACKET TOP (12:55)
[2018-10-14] MEDS: hydrALAzine 20 MG INJ IV (16:24)
[2018-10-14] MEDS ORDERED: ENALAPRILAT 1.25 MG INJ IV (16:30)
[2018-10-14] MEDS: METOPROLOL 25 MG TAB PO (21:02)
[2018-10-14] MEDS: ACETAMINOPHEN 325 MG TAB PO (21:42)
[2018-10-14] MEDS: traMADol 50 MG TAB PO (23:00)
[2018-10-15] MEDS: SOD CHLORIDE 0.9% 1,000 ML IV (00:31)
[2018-10-15] MEDS: PANTOPRAZOLE 40 MG INJ IV ×2 (05:27→05:56)
[2018-10-15] MEDS: DIVALPROEX SPRINKLE 125 MG CAP PO (08:51)
[2018-10-15] MEDS: METOPROLOL 25 MG TAB PO (08:51)
[2018-10-15] MEDS: BENZTROPINE 1 MG TAB PO (08:51)
[2018-10-15] MEDS: BALSAM PERU/CASTOR OIL 60 GM TUBE TOP (08:52)
[2018-10-15] MEDS: CHLORPROMAZINE 25 MG TAB PO (08:52)
== END 2018-10-15 09:45 | disposition left against medical advice (07) | DRG 885 ==
LOC: 5EC 10-12 11:20 → E/R 12:12 → ICU 10-06 08:51
PROC: 5A1945Z Respiratory Ventilation, 24-96 Consecutive Hours (ICD-10-PCS; principal; 2018-10-06)
PROC: 0BH17EZ Insertion of Endotracheal Airway into Trachea, Via Natural or Artificial Opening (ICD-10-PCS; 2018-10-06)
PROC: 02HV33Z Insertion of Infusion Device into Superior Vena Cava, Percutaneous Approach (ICD-10-PCS; 2018-10-07)
DX: F23 Brief psychotic disorder (principal); J96.90 Respiratory failure, unspecified, unspecified whether with hypoxia or hypercapnia; G92 Toxic encephalopathy; J18.9 Pneumonia, unspecified organism; M62.82 Rhabdomyolysis; N17.9 Acute kidney failure, unspecified; E87.0 Hyperosmolality and hypernatremia; F17.210 Nicotine dependence, cigarettes, uncomplicated; F31.9 Bipolar disorder, unspecified; Z68.32 Body mass index [BMI] 32.0-32.9, adult; E66.9 Obesity, unspecified; E83.42 Hypomagnesemia; R45.6 Violent behavior; R45.850 Homicidal ideations; A08.4 Viral intestinal infection, unspecified; E86.0 Dehydration; E88.09 Other disorders of plasma-protein metabolism, not elsewhere classified; E87.6 Hypokalemia; E83.39 Other disorders of phosphorus metabolism; R00.0 Tachycardia, unspecified; Z53.21 Procedure and treatment not carried out due to patient leaving prior to being seen by health care provider
CPT/HCPCS: 31500; 36415; 36569; 36600; 70450; 71045; 76775; 76937; 80048; 80053; 80069; 80307; 81001; 81003; 82150; 82550; 82553; 82570; 82803; 83605; 83690; 83735; 84100; 84155; 84300; 84484; 85025; 85610; 85730; 87040; 87070; 87081; 87086; 87400; 92526; 92610; 93005; 94002; 94003; 94770; 96372; 99291-25

== ENCOUNTER 2018-11-26 18:08 | Emergency (ER) | payer OTHER, MEDICAID | END 2018-11-26 18:30 | disposition home or self-care (01) | LOC: E/R 18:08 | DX: Z00.00 Encounter for general adult medical examination without abnormal findings (principal); Z87.891 Personal history of nicotine dependence | CPT/HCPCS: 99282 ==